=== PATIENT | female | born 1995 | race Caucasian/White ===

== ENCOUNTER 2017-07-25 04:26 | Emergency (ER) | payer BC ==
[~2017-07-25] VITALS: Ht 165.1 cm; Wt 56.7 kg
[~2017-07-25 04:26] MED LIST: DIPH-740 PO; METH18ERPT PO; NORG1TAB74 PO; PRED20TA6 PO
--- NOTE | 2017-07-25 04:28 | ER Report ---
History and Physical Time Seen By MD: 04:28 HPI/ROS CHIEF COMPLAINT: Weakness, difficulty breathing HISTORY OF PRESENT ILLNESS: 22-year-old female presents ambulatory to the ER complaining of difficulty breathing. She was diagnosed with influenza a few days ago. This morning she is feeling particularly weak and short of breath. On arrival. Her pulse ox and vital signs are normal. She does not have an increased respiratory rate. She has a nonproductive cough. She has no chest wall tenderness. She has no leg swelling. She has no photophobia or stiff neck. REVIEW OF SYSTEMS: Respiratory: No cough, no dyspnea. Cardiovascular: No chest pain, no palpitations. Gastrointestinal: No vomiting, no abdominal pain. Musculoskeletal: No back pain. Allergies: Coded Allergies: doxycycline (Verified Allergy, Mild, VOMITING, 07/25/17) albuterol (Verified Adverse Reaction, Unknown, SENSITIVE TO STIMULANT EFFECTS OF ALBUTEROL, 07/25/17) Home Meds Active Scripts Ondansetron (ZOFRAN ODT) 4 Mg Tab.rapdis, 4 MG PO every 6 hours Y for NAUSEA/ VOMITING, #12 TAB TAKE 1 TABLET BY MOUTH EVERY 12 HOURS Prov:ELADIO WELHS DO 07/25/17 Methylphenidate Hcl (CONCERTA) 18 Mg Tab.er.24, 1 TAB PO DAILY, #30 TAB 0 Refills May fill on or after 08/25/17 Prov:TAJ LYNNE APRNP-C 06/26/17 Reported Medications Norgestimate-Ethinyl Estradiol (SPRINTEC) 1 Each Tablet, 1 TAB PO DAILY 10/04/16 Discontinued Scripts Diphenhydramine Hcl (BENADRYL) 25 Mg Capsule, 25 MG PO Q6-8H for 3 Days, #15 CAPSULE Prov:FORD ABDIC 03/25/17 Prednisone (PREDNISONE) 20 Mg Tablet, 20 MG PO BID, #10 TAB Prov:FORD ABDI 03/25/17 Reviewed Nurses Notes: Yes Old Medical Records Reviewed: Yes Hx Smoking: No Smoking Status: Never Smoker Hx Substance Use Disorder: No Hx Alcohol Use: No Constitutional Vital Sign - Last 24 Hours 07/25/17 07/25/17 07/25/17 07/25/17 04:30 04:31 04:45 05:00 Temp 99.1 Pulse 98 93 95 93 Resp 14 16 B/P (MAP) 119/73 (88) 119/73 Pulse Ox 93 92 O2 Delivery Room Air 07/25/17 07/25/17 07/25/17 07/25/17 05:00 05:00 05:06 05:15 Pulse 86 111 Resp 16 B/P (MAP) 107/65 (79) Pulse Ox 96 98 O2 Delivery Room Air 07/25/17 07/25/17 07/25/17 05:30 05:45 06:05 Pulse 109 99 99 Resp 14 B/P (MAP) 104/64 (77) 103/75 (84) Pulse Ox 97 94 91 O2 Delivery Room Air Physical Exam General Appearance: The patient is alert, has no immediate need for airway protection and no current signs of toxicity. Vital signs stable, afebrile, pulse ox normal HEENT: Pupils equal and round no injection. TMs normal, oropharynx with mild erythema, no exudate Respiratory: Chest is non tender, lungs are clear to auscultation. Faint expiratory wheezing Cardiac: regular rate and rhythm Gastrointestinal: Abdomen is soft and non tender, no masses, bowel sounds normal. Musculoskeletal: Neck: Neck is supple and non tender. No meningismus Extremities have full range of motion and are non tender. No edema, no calf tenderness Skin: No rashes or lesions. DIFFERENTIAL DIAGNOSIS: After history and physical exam differential diagnosis was considered for adult fever including but not limited to viral syndromes including influenza, urinary tract infection, pneumonia and sepsis. Additionally,shortness of breath including but not limited to pulmonary infectious process, COPD, asthma, pulmonary embolus and congestive heart failure. Medical Decision Making EKG/Imaging Imaging X-ray: Two-view chest x-ray was obtained. I viewed the images myself on the PACS system. My interpretation of the images is: No infiltrate, no effusion, normal mediastinum. The radiologist interpretation had no clinically significant variation from this interpretation. ED Course/Re-evaluation ED Course Patient was admitted to an examination room. H&P was done. The differential diagnoses was considered. On clinical examination. Patient has stable vital signs. She appears fatigued and tired. I suspect she is experiencing acute viremia from the influenza virus and is feeling particularly washed out and weak. I think she is expecting shortness of breath subjectively. There is some wheezing on her lungs. She's been treated with nebulizers in the past with some benefit. She received an albuterol nebulizer treatment. She feels better. She's had an adverse reaction with anxiety induced after an albuterol treatment in the past. She is dispensed an albuterol inhaler. She is advised to increase her fluid intake and use ibuprofen for symptomatically relief. She is given a note to be off work and rest. She's been continuing to try to work while suffering influenza Decision to Disposition Date: Jul 25, 2017 Decision to Disposition Time: 06:00 Depart Departure Latest Vital Signs Vital Signs Date Time Temp Pulse Resp B/P (MAP) Pulse Ox O2 Delivery O2 Flow Rate FiO2 07/25/17 06:05 99 14 103/75 (84) 91 Room Air 07/25/17 04:31 99.1 Impression: Primary Impression: Dyspnea Additional Impressions: Influenza Nausea Condition: Improved Disposition: HOME OR SELF-CARE Referrals: TAJ LYNNE APRN [employer] ADMINISTRATOR-C (PCP) New Scripts Ondansetron (ZOFRAN ODT) 4 Mg Tab.rapdis 4 MG PO every 6 hours Y for NAUSEA/VOMITING, #12 TAB TAKE 1 TABLET BY MOUTH EVERY 12 HOURS Prov: ELADIO WELSH DO 07/25/17 Patient Instructions: Influenza (ED) Additional Instructions: Drink plenty of fluids to stay hydrated Get more rest Use Zofran/ondansetron to control nausea and vomiting Follow-up with your primary care if unimproved in 2-3 days Problem Qualifiers Primary Impression: Dyspnea Dyspnea type: unspecified Qualified Codes: R06.00 - Dyspnea, unspecified ELADIO WELSH DO Jul 25, 2017 04:28
[2017-07-25] MEDS ORDERED: ALBUTEROL SULFATE 90 MCG/ACT 8.5 GM HNH INH PRN (04:45)
[2017-07-25] MEDS ORDERED: ALBUTEROL/IPRATROPIUM 3 ML NEB NEB ONE (04:45)
[2017-07-25] MEDS ORDERED: ONDANSETRON 4 MG ODT TABDP SL ONE (05:55)
[2017-07-25] MEDS ORDERED: ONDA4TAB PO (06:03)
[2017-07-25 06:05] VITALS: BP 103/75
[2017-07-25] MEDS ORDERED: ONDANSETRON 4 MG ODT TH SL ONE (06:20)
--- NOTE | 2017-07-25 06:22 | RADIOLOGY IMAGING REPORT ---
FACILITY: [facility] PATIENT NAME: Andrew Adamson : 1995 MR: [id number] V: [id number] EXAM DATE: ORDERING PHYSICIAN: ELADIO WELSH TECHNOLOGIST: Location: [facility] Patient: Andrew Adamson : 1995 Visit/Account:[id number] Date of Sevice: 07/25/2017 CHEST PA AND LAT HISTORY: Dyspnea. Recent influenza diagnosis. COMPARISON: None. TECHNIQUE: PA and lateral views of the chest. FINDINGS: Pulmonary: Lungs are clear. There is no pneumothorax or pleural effusion. Cardiomediastinal: Cardiac and mediastinal silhouettes are within normal limits. Bones/soft tissues: No acute osseous abnormality. There is a mild rightward curvature of the thoracic spine. The visible abdomen is normal. IMPRESSION: 1. No acute cardiopulmonary process. Report Dictated By: Susanne Anton at 07/25/2017 6:17 AM Report E-Signed By: Susanne Anton at 07/25/2017 6:18 AM WSN:[id number]
== END 2017-07-25 06:31 | disposition home or self-care (01) ==
LOC: ER 05:20
DX: J11.1 Influenza due to unidentified influenza virus with other respiratory manifestations (principal); R06.02 Shortness of breath; R11.0 Nausea
CPT/HCPCS: 71046; 94640; 99283; J7620; S0119